=== PATIENT | female | born 1970 | race Two or more races ===

== ENCOUNTER 2018-04-07 23:56 | Emergency (ER) | payer BC, OTHER ==
[~2018-04-07] VITALS: Ht 165.1 cm; Wt 49.9 kg
--- NOTE | 2018-04-08 | NUR ---
PT PRESENTED TO THE ER WITH A C/O ABD PAIN WITH N/V SINCE YESTERDAY. PT STATED THAT SHE WAS CONSTIPATED X2 DAYS AND TODAY IT'S PURE WATER THAT IS COMING OUT. PT HAS A J-POUCH AND FEELS THAT SHE MIGHT HAVE AN OBSTRUCTION. PT IS ALSO C/O OF A HEADACHE 01/14. PT AMBULATED TO ER BED #6 WITH A STEADY GAIT. RESP EVEN AND UNLABORED. PT IS RUBBING HER HEAD AND FACIAL GRIMACING NOTED. PT IS ON THE MONITOR AND CONTINUOUS PULSE OX.
--- NOTE | 2018-04-08 | NUR ---
Note lyla in EDM - 04/08/18 at 0110 by CELINA PT PRESENTED TO THE ER WITH A C/O ABD PAIN WITH N/V SINCE YESTERDAY. PT STATED THAT SHE WAS CONSTIPATED X2 DAYS AND TODAY IT'S PURE WATER THAT IS COMING OUT. PT HAS A J-BAG.
[2018-04-08] MEDS ORDERED: IV NS 0.9% 1,000 ML BAG IV ONE (00:30)
[2018-04-08] MEDS ORDERED: ONDANSETRON HCL/PF 4 MG/2 ML VIAL ONE (00:30)
[2018-04-08] MEDS ORDERED: HYDROMORPHONE INJ 2 MG/ML DISP.SYRIN IV ONE (00:30)
[2018-04-08] MEDS ORDERED: ONDANSETRON HCL/PF 4 MG/2 ML VIAL IVP ONE (00:30)
[2018-04-08] MEDS ORDERED: HYDROMORPHONE INJ 2 MG/ML DISP.SYRIN ONE (00:31)
[2018-04-08 00:41] LABS: BASOPHILS # (AUTO) 0.1 /CMM (0.0-0.2); BASOPHILS % (AUTO) 0.6 % (0.0-2.0); EOSINOPHILS % (AUTO) 0.2 % (0.0-6.0); HEMATOCRIT 43 % (33-45); LYMPHOCYTES # (AUTO) 0.2 /CMM (0.8-4.8); LYMPHOCYTES % (AUTO) 1.7 % (20.0-44.0); MEAN CORPUSCULAR HGB CONC 33 g/dl (31.0-36.0); MEAN CORPUSCULAR VOLUME 85 fL (82-100); MONOCYTES # (AUTO) 0.3 /CMM (0.1-1.30); MONOCYTES % (AUTO) 2.1 % (2.0-12.0); NEUTROPHILS # (AUTO) 11.7 /CMM (1.8-8.9); NEUTROPHILS % (AUTO) 95.4 % (43.0-81.0); PLATELET COUNT (AUTO) 514 /CMM (150-450); RED BLOOD CELL COUNT(AUTO) 5.05 MIL/uL (4.0-5.2); WHITE BLOOD COUNT (AUTO) 12.3 K/uL (4.3-11.0)
[2018-04-08 00:49] LABS: CALCIUM, SERUM 9.4 mg/dL (8.5-10.1); POTASSIUM 3.8 mmol/L (3.5-5.1)
[2018-04-08 00:55] LABS: ALBUMIN 4.3 g/dL (3.4-5.0); BILIRUBIN,DIRECT 0.2 mg/dL (0.0-0.2); TOTAL PROTEIN, SERUM 8.5 g/dL (6.4-8.2)
--- NOTE | 2018-04-08 01:01 | NUR ---
Francis JORGE NP IS AT THE BEDSIDE SPEAKING TO THE PT.
--- NOTE | 2018-04-08 01:07 | NUR ---
DR HUTCHINSON IS AT THE BEDSIDE SPEAKING TO THE PT.
--- NOTE | 2018-04-08 01:09 | NUR ---
PT IS TRYING TO GIVE A URINE AND STOOL SAMPLE.
--- NOTE | 2018-04-08 01:14 | NUR ---
STOOL AND URINE SAMPLE SENT TO LAB. LAB CALLED FOR P/U.
[2018-04-08 01:27] LABS: APPEARANCE,URINE SL CLOUDY (CLEAR); BILIRUBIN,URINE 1+ (NEGATIVE); BLOOD, URINE 3+ Ery/uL (NEGATIVE); COLOR,URINE YELLOW (YELLOW); KETONES,URINE NEGATIVE (NEGATIVE); LEUKOCYTE ESTERASE ,URINE TRACE (NEGATIVE); NITRITE, URINE NEGATIVE (NEGATIVE); PROTEIN,URINE 1+ mg/dl (NEGATIVE); UGLUCOSE NEGATIVE (NEGATIVE); UROBILINOGEN,URINE 0.2 EU/dL (0.2)
[2018-04-08 01:30] LABS: BACTERIA,URINE Few /HPF (None Seen); RBC,URINE 21-50 /HPF (0-2); SQUAMOUS EPITHELIAL CELL,UR Few /HPF (None Seen); WBC,URINE 21-50 /HPF (0-3)
--- NOTE | 2018-04-08 01:41 | NUR ---
Patient discharged to home in stable condition. Written and verbal after care instructions given. Patient verbalizes understanding of instruction. IV removed. Catheter intact and site benign. Pressure and 4x4 applied to site. No bleeding noted. VSS. NAD NOTED.
[2018-04-08 01:42] VITALS: BP 94/56
== END 2018-04-08 01:43 | disposition home or self-care (01) ==
LOC: ER 23:58
DX: K91.858 Other complications of intestinal pouch (principal); R19.7 Diarrhea, unspecified; Z85.43 Personal history of malignant neoplasm of ovary; Z85.3 Personal history of malignant neoplasm of breast; Z87.19 Personal history of other diseases of the digestive system; Z98.890 Other specified postprocedural states
CPT/HCPCS: 36415; 80048-TC; 80076-TC; 81000-TC; 83690-TC; 84703-TC; 85025-TC; 85730-TC; 87045-TC; 87086-TC; 89055; J1170; J2405; J7030

== ENCOUNTER 2018-12-05 05:58 | Emergency (ER) | payer BC, OTHER | END 2018-12-05 07:30 | disposition home or self-care (01) | DX: S29.012A Strain of muscle and tendon of back wall of thorax, initial encounter (principal); Z98.890 Other specified postprocedural states; Z85.3 Personal history of malignant neoplasm of breast; Z85.43 Personal history of malignant neoplasm of ovary; X58.XXXA Exposure to other specified factors, initial encounter; Y93.89 Activity, other specified; Y92.89 Other specified places as the place of occurrence of the external cause; Y99.8 Other external cause status ==